=== PATIENT | female | born 1935 | race Caucasian/White ===

== ENCOUNTER → 2016-12-11 | Outpatient (CLI) | payer OTHER, BC ==
--- NOTE | 2016-12-11 18:43 | DX ---
PA and Lateral Chest December 11, 2016 Indication: Evaluate for tuberculosis. ICD-10 Z11.1. Comparison: None. Findings: The hyperinflated lungs are clear except for mild diffuse peribronchial thickening. No ai rspace consolidation, pulmonary nodule, or apical scarring. The heart is minimally enlarged. No cep halization of the pulmonary vasculature or edema. Intramedullary cement resides in a high lumbar juan tebral body. Impression: 1. Clear lungs. No evidence of old or active granulomatous disease. 2. Chronic airways disease and air trapping.
== END ==
LOC: FIMAGING 15:20
PROVIDERS: ATTEND Family Medicine Geriatric Medicine
DX: Z11.1 Encounter for screening for respiratory tuberculosis (principal)